=== PATIENT | male | born 1965 | race African-American/Black ===

== ENCOUNTER 2017-02-04 21:59 | Emergency (ER) | payer OTHER ==
[~2017-02-04] VITALS: Ht 167.6 cm; Wt 63.5 kg
[2017-02-04 23:48] VITALS: BP 128/100
== END 2017-02-04 23:50 | disposition home or self-care (01) ==
LOC: ER 21:59
DX: F10.129 Alcohol abuse with intoxication, unspecified (principal)

== ENCOUNTER 2018-10-08 23:01 | Emergency (ER) | payer OTHER ==
[~2018-10-08] VITALS: Ht 165.1 cm; Wt 61.2 kg
[2018-10-09 05:48] VITALS: BP 93/57
== END 2018-10-09 05:49 | disposition home or self-care (01) ==
LOC: ER 23:01
DX: S00.81XA Abrasion of other part of head, initial encounter (principal); F10.129 Alcohol abuse with intoxication, unspecified; X58.XXXA Exposure to other specified factors, initial encounter; Y92.89 Other specified places as the place of occurrence of the external cause; Y93.89 Activity, other specified; Y99.8 Other external cause status

== ENCOUNTER 2019-05-12 21:03 | Emergency (ER) | payer OTHER ==
[~2019-05-12] VITALS: Ht 165.1 cm; Wt 65.8 kg
[2019-05-13 05:30] VITALS: BP 100/48
== END 2019-05-13 05:30 | disposition home or self-care (01) ==
LOC: ER 21:03
DX: F10.129 Alcohol abuse with intoxication, unspecified (principal)